=== PATIENT | female | born 1940 | race Two or more races ===

== ENCOUNTER 2024-12-06 13:28 | Emergency (ER) | payer OTHER ==
[~2024-12-06] VITALS: Ht 160 cm; Wt 40.8 kg
[2024-12-06] MEDS ORDERED: MEMANTINE HCL E28 MG (13:49)
[2024-12-06] MEDS ORDERED: PEPCID AC20 MG PO (13:50)
[2024-12-06] MEDS ORDERED: ATORVASTATIN CA20 MG PO (13:50)
[2024-12-06] MEDS ORDERED: MONTELUKAST SODI4 M1 PO (13:51)
[2024-12-06] MEDS ORDERED: ADULT LOW DOSE81 M1 PO (13:51)
[2024-12-06 14:57] LABS: HEMATOCRIT 30.8 % (36.0-45.00); HEMOGLOBIN 10.5 g/dL (12.0-15.00); MEAN CELL VOLUME 97.5 fL (80.00-100.00); MEAN CORPUSCULAR HEMOGLOBIN 33.2 pg (27.00-32.0); MEAN CORPUSCULAR HGB CONC 34.1 g/dl (32.0-36.0); PLATELET COUNT 212 K/uL (150-450); RED BLOOD COUNT 3.16 M/uL (4.00-6.00); RED CELL DISTRIBUTION WIDTH 14.9 % (11.5-14.5)
[2024-12-06 15:18] LABS: INR 0.98; PARTIAL THROMBOPLASTIN TIME 22.5 SECONDS (22.0-34.0); PROTHROMBIN TIME 10.7 SECONDS (9.0-11.5)
[2024-12-06 15:24] LABS: ALBUMIN 3.2 gm/dL (3.4-5.0); BILIRUBIN TOTAL 0.27 mg/dL (0.3-1.2); CALCIUM 8.8 mg/dL (8.5-10.1); CREATININE SERUM 0.92 mg/dL (0.55-1.02); GFR 58.16; GLOBULINA 3.3 G/DL (2.4-3.5); POTASSIUM 4.1 mEq/L (3.5-5.1); TOTAL PROTEIN 6.5 gm/dL (6.4-8.2)
[2024-12-06 15:29] LABS: PH,URINE 7.5 (5.0-8.0); URINE APPEARANCE Clear; URINE BILIRRUBIN Negative (NEGATIVE); URINE BLOOD Large; URINE COLOR Yellow; URINE GLUCOSE Negative (NEGATIVE); URINE KETONE Negative (NEGATIVE); URINE LEUKOCYTE Small; URINE NITRATE Positive; URINE PROTEIN Negative (NEGATIVE); URINE UROBILINOGEN 0.2 E.U./dl
[2024-12-06 15:33] LABS: URINE EPITHELIAL CELLS 3.1 uL (0.0-38.8); URINE RBC 268.8 uL (0.0-20.8); URINE WBC 227.7 uL (0.0-23.2)
[2024-12-06 15:51] LABS: URINE BACTERIA > 9821.5 uL (0.0-1933)
[2024-12-06] MEDS ORDERED: CEFTRIAXONE SODIUM 2,000 MG VIAL ONE (15:54)
[2024-12-06] MEDS ORDERED: CEPHALEXIN500 MG PO (15:56)
[2024-12-06] MEDS ORDERED: CEFTRIAXONE SODIUM 2,000 MG VIAL IV ONE (16:00)
== END 2024-12-06 17:11 | disposition home or self-care (01) ==
LOC: ER 13:28
PROVIDERS: General Practice
DX: N93.8 Other specified abnormal uterine and vaginal bleeding (principal); N39.0 Urinary tract infection, site not specified; G30.8 Other Alzheimer's disease; F02.80 Dementia in other diseases classified elsewhere, unspecified severity, without behavioral disturbance, psychotic disturbance, mood disturbance, and anxiety
CPT/HCPCS: 36415; 76830; 96365; 99284; J0696